=== PATIENT | male | born 1930 | race Caucasian/White ===

== ENCOUNTER 2017-02-20 16:07 | Inpatient (IN) | payer BC, MEDICARE ==
[~2017-02-20] VITALS: Ht 185.4 cm; Wt 116.1 kg
[~2017-02-20 16:07] MED LIST: ASPI-1158 PO; ATOR10TA PO; CARV3.1242 PO; FURO40TA5 PO; LOSA25TA12 PO; POTA10TA15 PO; RABE20TA27 PO
[2017-02-20] MEDS ORDERED: SODIUM CHLORIDE 0.9% 500 ML IV ONE (18:00)
[2017-02-20 18:27] LABS: CLARITY URINE CLEAR (CLEAR); COLOR URINE YELLOW (YELLOW); GLUCOSE URINE NEGATIVE (NEGATIVE); KETONES URINE NEGATIVE (NEGATIVE); LEUKOCYTE ESTERASE URINE 1+ (NEGATIVE); NITRITE URINE NEGATIVE (NEGATIVE); OCCULT BLOOD URINE TRACE (NEGATIVE); PROTEIN URINE NEGATIVE (NEGATIVE); UROBILINOGEN URINE 0.2 E.U./dL (0.2-1.0)
[2017-02-20 18:48] LABS: CHLORIDE 118 mEq/L (98-107); HEMOGLOBIN. 16.8 g/dL (14.0-18.0); MEAN CORPUSCULAR HEMOGLOBIN 32.8 pg (28.0-32.0); MEAN CORPUSCULAR VOLUME 97.5 fL (80.0-94.0); MEAN PLATELET VOLUME 9.7 fl (7.4-10.4); PLATELET 275 x1000/uL (130-400); RED BLOOD CELL COUNT 5.13 mill/uL (4.7-6.1); RED CELL DISTRIBUTION WIDTH 13.7 % (11.6-14.6)
[2017-02-20 18:49] LABS: INR 1.3; PROTHROMBIN TIME 13.5 sec (9.4-11.6)
[2017-02-20 18:52] LABS: CARBON DIOXIDE 29 mEq/L (21-32)
[2017-02-20 19:23] LABS: HEPATITIS B SURFACE ANTIGEN NEGATIVE
[2017-02-20 19:51] LABS: HEPATITIS B CORE AB IGM NEGATIVE
[2017-02-20 19:52] LABS: HEPATITIS A AB IGM NEGATIVE (NEGATIVE)
[2017-02-20 20:31] LABS: ATYPICAL LYMPHOCYTES 1
[2017-02-20 20:32] LABS: PLATELET ESTIMATE NORMAL
[2017-02-20 20:51] LABS: *AMPHETAMINES SCREEN URINE NEGATIVE (NEGATIVE); *BARBITURATES SCREEN URINE NEGATIVE (NEGATIVE); *BENZODIAZEPINES SCREEN URINE NEGATIVE (NEGATIVE); *COCAINE SCREEN URINE NEGATIVE (NEGATIVE); CANNABINOID URINE SCREEN NEGATIVE (NEGATIVE); METHADONE URINE SCREEN NEGATIVE (NEGATIVE); OPIATES URINE SCREEN NEGATIVE (NEGATIVE); PHENCYCLIDINE URINE SCREEN NEGATIVE (NEGATIVE)
[2017-02-20] MEDS ORDERED: SODIUM CHLORIDE 0.9% 1000ML BAG (SEPSIS BOLUS) IV ONE (23:30)
[2017-02-21] VITALS (10 sets, daily range): BP systolic 85–122; BP diastolic 45–75
[2017-02-21] MEDS ORDERED: LOSARTAN POTASSIUM 25 MG TABLET PO ONE
[2017-02-21] MEDS ORDERED: CARVEDILOL 6.25 MG TABLET PO ONE
[2017-02-21] MEDS ORDERED: MAGNESIUM/ALUMINUM HYDROXIDE/SIMETHICONE 30ML UDC PO PRN (00:15)
[2017-02-21] MEDS ORDERED: NA PHOS,M-B/NA PHOS,DI-BA ENEMA 118ML PR PRN (00:15)
[2017-02-21] MEDS ORDERED: NITROGLYCERIN 0.4MG TABLET SL SL PRN (00:15)
[2017-02-21] MEDS ORDERED: ENOXAPARIN 40MG/0.4ML SYR SUBCUT SCH (00:15)
[2017-02-21] MEDS ORDERED: TRAMADOL 50MG TABLET PO PRN (00:15)
[2017-02-21] MEDS ORDERED: ONDANSETRON HCL 4MG/2ML VIAL IV PRN (00:15)
[2017-02-21] MEDS ORDERED: CLONIDINE 0.1MG TABLET PO PRN (00:15)
[2017-02-21] MEDS ORDERED: PIPERACILLIN/TAZ 3.375G PREMIX 50 ML IV SCH (02:00)
[2017-02-21] MEDS: DEXT 5%/0.45% NACL 1000ML 1,000 ML IV SCH ×3 (02:53→23:56)
[2017-02-21] MEDS: HYDRALAZINE HCL 50MG TABLET PO SCH ×3 (05:55→22:55)
[2017-02-21] MEDS ORDERED: DILTIAZEM HCL 60MG TABLET PO SCH (06:00)
[2017-02-21 06:46] LABS: CREATINE KINASE MB FRACTION 2.1 ng/mL (0.5-3.6); TROPONIN I 0.08 ng/mL (0.00-0.04)
[2017-02-21 07:29] LABS: FOLIC ACID (FOLATE) SERUM > 20.00 ng/mL (>5.38); VITAMIN B12 SERUM > 2000.0 pg/mL (211-911)
[2017-02-21] MEDS: LISINOPRIL 20MG TABLET PO SCH ×2 (08:26→20:24)
[2017-02-21] MEDS: FAMOTIDINE 20MG/2ML VIAL IV SCH ×2 (08:27→20:24)
[2017-02-21] MEDS: ENOXAPARIN 30MG/0.3ML SYR SUBCUT SCH ×2 (08:27→20:24)
[2017-02-21] MEDS: MORPHINE SULFATE 4 MG/ML CPJ (NOT FOR IM USE) IV PRN ×2 (08:27→13:02)
[2017-02-21] MEDS ORDERED: DILTIAZEM HCL 125 MG in DEXT 5% WATER 100 ML IV SCH ×2 (12:15→13:00)
[2017-02-21] MEDS: PIPERACILLIN/TAZ 3.375G PREMIX 50 ML IV SCH ×2 (12:29→20:24)
[2017-02-21] MEDS: LORAZEPAM 2MG/ML CPJ IV PRN ×2 (13:02→19:09)
[2017-02-21] MEDS ORDERED: DILTIAZEM HCL 5MG/ML 5ML VIAL IV PRN (15:00)
[2017-02-21 15:50] LABS: CREATINE KINASE MB FRACTION 2.1 ng/mL (0.5-3.6); TROPONIN I 0.08 ng/mL (0.00-0.04)
[2017-02-22] VITALS (12 sets, daily range): BP systolic 95–157; BP diastolic 39–126
[2017-02-22] MEDS: LORAZEPAM 2MG/ML CPJ IV PRN ×3 (01:34→20:31)
[2017-02-22] MEDS: PIPERACILLIN/TAZ 3.375G PREMIX 50 ML IV SCH ×3 (03:01→19:44)
[2017-02-22] MEDS: HYDRALAZINE HCL 50MG TABLET PO SCH (06:00)
[2017-02-22 06:11] LABS: HEMATOCRIT. 45.4 % (42.0-52.0); HEMOGLOBIN. 15.4 g/dL (14.0-18.0); MEAN CORPUSCULAR HEMOGLOBIN 33.4 pg (28.0-32.0); MEAN CORPUSCULAR VOLUME 98.3 fL (80.0-94.0); MEAN PLATELET VOLUME 10.2 fl (7.4-10.4); PLATELET 231 x1000/uL (130-400); RED BLOOD CELL COUNT 4.62 mill/uL (4.7-6.1); RED CELL DISTRIBUTION WIDTH 13.8 % (11.6-14.6)
[2017-02-22 07:16] LABS: CARBON DIOXIDE 27 mEq/L (21-32); CHLORIDE 116 mEq/L (98-107); CREATINE KINASE 80 IU/L (39-308); CREATINE KINASE MB FRACTION 2.8 ng/mL (0.5-3.6)
[2017-02-22] MEDS: ENOXAPARIN 30MG/0.3ML SYR SUBCUT SCH ×2 (08:36→21:50)
[2017-02-22] MEDS: FAMOTIDINE 20MG/2ML VIAL IV SCH ×2 (08:36→20:23)
[2017-02-22] MEDS: LISINOPRIL 20MG TABLET PO SCH (08:38)
[2017-02-22 09:09] LABS: PLATELET ESTIMATE NORMAL
[2017-02-22] MEDS ORDERED: POTASSIUM CHLORIDE 20MEQ TABLET SR PO NR (11:30)
[2017-02-22] MEDS: ASPIRIN 81MG EC TABLET PO SCH (12:28)
[2017-02-22] MEDS: METOPROLOL TARTRATE 25MG TABLET PO SCH ×2 (12:29→20:23)
[2017-02-22 12:49] LABS: AMMONIA 26 uMol/L (<32)
[2017-02-22] MEDS: HYDRALAZINE HCL 25MG TABLET PO SCH ×2 (15:39→21:50)
[2017-02-22] MEDS: LISINOPRIL 5MG TABLET PO SCH (20:24)
[2017-02-22] MEDS: DIPHENHYDRAMINE 50MG/ML VIAL IV PRN (20:31)
[2017-02-22] MEDS: DEXT 5%/0.45% NACL 1000ML 1,000 ML IV SCH ×2 (20:38→20:40)
[2017-02-23] VITALS (23 sets, daily range): BP systolic 69–147; BP diastolic 40–103
[2017-02-23] MEDS: PIPERACILLIN/TAZ 3.375G PREMIX 50 ML IV SCH ×3 (03:59→19:51)
[2017-02-23] MEDS: HYDRALAZINE HCL 25MG TABLET PO SCH ×3 (05:37→21:14)
[2017-02-23] MEDS: DEXT 5%/0.45% NACL 1000ML 1,000 ML IV SCH ×3 (05:43→23:28)
[2017-02-23 07:40] LABS: BASOPHILS % 0.5 % (0.0-2.0); EOSINOPHILS % 5.2 % (0.0-5.0); HEMOGLOBIN. 15.2 g/dL (14.0-18.0); LYMPHOCYTES % 7.6 % (20.0-50.0); MEAN CORPUSCULAR HEMOGLOBIN 32.6 pg (28.0-32.0); MEAN CORPUSCULAR VOLUME 100.5 fL (80.0-94.0); NEUTROPHILS % 78.7 % (40.0-76.0); RED BLOOD CELL COUNT 4.67 mill/uL (4.7-6.1)
[2017-02-23] MEDS: FAMOTIDINE 20MG/2ML VIAL IV SCH ×2 (09:18→20:09)
[2017-02-23] MEDS: LISINOPRIL 5MG TABLET PO SCH ×2 (09:18→20:10)
[2017-02-23] MEDS: ASPIRIN 81MG EC TABLET PO SCH (09:19)
[2017-02-23] MEDS: ENOXAPARIN 30MG/0.3ML SYR SUBCUT SCH ×2 (09:19→20:09)
[2017-02-23] MEDS: METOPROLOL TARTRATE 25MG TABLET PO SCH ×2 (09:19→20:10)
[2017-02-23 12:11] LABS: PLATELET 150 x1000/uL (130-400)
[2017-02-23 14:11] LABS: CARBON DIOXIDE 26 mEq/L (21-32); CHLORIDE 113 mEq/L (98-107)
[2017-02-23 14:12] LABS: TROPONIN I 0.06 ng/mL (0.00-0.04)
[2017-02-23] MEDS: MAGNESIUM OXIDE 400MG TABLET NG SCH (14:40)
[2017-02-23] MEDS ORDERED: POTASSIUM CHLORIDE 20MEQ/PACKET PO NR (15:00)
[2017-02-23] MEDS: LORAZEPAM 2MG/ML CPJ IV PRN (19:53)
[2017-02-24] VITALS (12 sets, daily range): BP systolic 104–170; BP diastolic 55–94
[2017-02-24] MEDS: ZOLPIDEM TARTRATE 5MG TABLET PO PRN ×2 (00:57→21:03)
[2017-02-24] MEDS: DIPHENHYDRAMINE 50MG/ML VIAL IV PRN ×2 (00:57→20:44)
[2017-02-24] MEDS: PIPERACILLIN/TAZ 3.375G PREMIX 50 ML IV SCH ×3 (03:49→20:23)
[2017-02-24] MEDS: HYDRALAZINE HCL 25MG TABLET PO SCH ×3 (06:16→21:25)
[2017-02-24] MEDS: MAGNESIUM OXIDE 400MG TABLET NG SCH (09:27)
[2017-02-24] MEDS: FAMOTIDINE 20MG/2ML VIAL IV SCH ×2 (09:27→20:24)
[2017-02-24] MEDS: ASPIRIN 81MG EC TABLET PO SCH (09:27)
[2017-02-24] MEDS: LISINOPRIL 5MG TABLET PO SCH ×2 (09:28→21:26)
[2017-02-24] MEDS: METOPROLOL TARTRATE 25MG TABLET PO SCH ×2 (09:28→20:25)
[2017-02-24] MEDS: ENOXAPARIN 30MG/0.3ML SYR SUBCUT SCH ×2 (09:28→20:23)
[2017-02-24 12:00] LABS: CARBON DIOXIDE 26 mEq/L (21-32); CHLORIDE 112 mEq/L (98-107)
[2017-02-24] MEDS: DEXT 5%/0.45% NACL 1000ML 1,000 ML IV SCH (18:17)
[2017-02-24] MEDS: LORAZEPAM 2MG/ML CPJ IV PRN (20:24)
[2017-02-24] MEDS: MORPHINE SULFATE 4 MG/ML CPJ (NOT FOR IM USE) IV PRN (21:27)
[2017-02-25] VITALS (12 sets, daily range): BP systolic 101–144; BP diastolic 45–99
[2017-02-25] MEDS: PIPERACILLIN/TAZ 3.375G PREMIX 50 ML IV SCH ×3 (03:01→20:56)
[2017-02-25] MEDS: DEXT 5%/0.45% NACL 1000ML 1,000 ML IV SCH ×2 (03:21→06:00)
[2017-02-25] MEDS: HYDRALAZINE HCL 25MG TABLET PO SCH ×3 (05:14→21:00)
[2017-02-25] MEDS: MAGNESIUM OXIDE 400MG TABLET NG SCH (08:42)
[2017-02-25] MEDS: ASPIRIN 81MG EC TABLET PO SCH (08:42)
[2017-02-25] MEDS: LISINOPRIL 5MG TABLET PO SCH ×2 (08:43→21:00)
[2017-02-25] MEDS: METOPROLOL TARTRATE 25MG TABLET PO SCH ×2 (08:43→21:00)
[2017-02-25] MEDS: ENOXAPARIN 30MG/0.3ML SYR SUBCUT SCH ×2 (08:43→21:01)
[2017-02-25] MEDS: FAMOTIDINE 20MG/2ML VIAL IV SCH ×2 (11:45→21:00)
[2017-02-25 12:45] LABS: BG BASE EXCESS 2.5 mmol/L (-2.0-2.0); BG CARBOXYHEMOGLOBIN 0.3 % (0.5-1.5); BG DEOXYHEMOGLOBIN 2.3 % (0.0-5.0); BG FRACTION INSPIRED OXYGEN 28; BG HCO3 ACT 26.6 mmol/L (22.0-26.0); BG OXYGEN SATURATION 97.7 % (92.0-98.5); BG OXYHEMOGLOBIN 97.4 % (94.0-97.0); BG PCO2 39.4 mmHg (35.0-45.0); BG PH 7.447 (7.350-7.450); BG PO2 96.5 mmHg (75.0-100.0); BG SAMPLE SITE RIGHT RADIAL; BG TOTAL HEMOGLOBIN 14.7 g/dL (12.0-18.0); BG VENT MODE NASAL CANNULA
[2017-02-25] MEDS ORDERED: MAGNESIUM 2 G PREMIX 50 ML IV SCH (15:00)
[2017-02-26 01:51] VITALS: BP 119/76
[2017-02-26] MEDS: DEXT 5%/0.45% NACL 1000ML 1,000 ML IV SCH ×3 (02:00→10:31)
[2017-02-26] MEDS: IPRATROPIUM/ALBUTEROL 0.5-3(2.5)MG/3ML NEB HHN SCH ×4 (02:19→20:35)
[2017-02-26 03:51] VITALS: BP 120/72
[2017-02-26] MEDS: PIPERACILLIN/TAZ 3.375G PREMIX 50 ML IV SCH ×3 (04:58→20:43)
[2017-02-26 05:51] VITALS: BP 129/71
[2017-02-26] MEDS: HYDRALAZINE HCL 25MG TABLET PO SCH ×3 (07:10→22:45)
[2017-02-26 07:51] LABS: BASOPHILS % 0.5 % (0.0-2.0); EOSINOPHILS % 3.7 % (0.0-5.0); HEMATOCRIT. 40.9 % (42.0-52.0); HEMOGLOBIN. 13.7 g/dL (14.0-18.0); MEAN CORPUSCULAR HEMOGLOBIN 32.3 pg (28.0-32.0); MEAN CORPUSCULAR VOLUME 96.5 fL (80.0-94.0); MEAN PLATELET VOLUME 10.7 fl (7.4-10.4); MONOCYTES % 10.5 % (2.0-8.0); NEUTROPHILS % 74.3 % (40.0-76.0); PLATELET 233 x1000/uL (130-400); RED BLOOD CELL COUNT 4.24 mill/uL (4.7-6.1); RED CELL DISTRIBUTION WIDTH 13.4 % (11.6-14.6)
[2017-02-26 07:52] LABS: CARBON DIOXIDE 27 mEq/L (21-32); CHLORIDE 106 mEq/L (98-107); TROPONIN I 0.06 ng/mL (0.00-0.04)
[2017-02-26] MEDS: DOCUSATE SODIUM 100MG CAPSULE PO PRN (10:26)
[2017-02-26] MEDS: ASPIRIN 81MG EC TABLET PO SCH (10:26)
[2017-02-26] MEDS: LISINOPRIL 5MG TABLET PO SCH ×2 (10:27→20:43)
[2017-02-26] MEDS: MAGNESIUM OXIDE 400MG TABLET NG SCH (10:28)
[2017-02-26] MEDS: FAMOTIDINE 20MG/2ML VIAL IV SCH ×2 (10:28→22:47)
[2017-02-26] MEDS: ENOXAPARIN 30MG/0.3ML SYR SUBCUT SCH ×2 (10:29→20:44)
[2017-02-26] MEDS: METOPROLOL TARTRATE 25MG TABLET PO SCH ×2 (10:33→20:43)
[2017-02-26] MEDS: ACETAMINOPHEN 325MG TABLET PO PRN (14:21)
[2017-02-26 20:00] VITALS: BP 124/63
[2017-02-26 22:00] VITALS: BP 128/72
[2017-02-26] MEDS: DIPHENHYDRAMINE 50MG/ML VIAL IV PRN (22:45)
[2017-02-27] VITALS (12 sets, daily range): BP systolic 112–156; BP diastolic 61–93
[2017-02-27] MEDS: DEXT 5%/0.45% NACL 1000ML 1,000 ML IV SCH ×4 (00:02→23:23)
[2017-02-27] MEDS: GUAIFENESIN 200MG/10ML SUGAR FREE UDC PO PRN (00:57)
[2017-02-27] MEDS: IPRATROPIUM/ALBUTEROL 0.5-3(2.5)MG/3ML NEB HHN SCH ×4 (01:37→19:30)
[2017-02-27] MEDS: ACETAMINOPHEN 325MG TABLET PO PRN ×2 (02:14→22:19)
[2017-02-27] MEDS: PIPERACILLIN/TAZ 3.375G PREMIX 50 ML IV SCH ×3 (04:41→20:06)
[2017-02-27] MEDS: HYDRALAZINE HCL 25MG TABLET PO SCH ×3 (05:25→22:19)
[2017-02-27] MEDS: ASPIRIN 81MG EC TABLET PO SCH (08:42)
[2017-02-27] MEDS: FAMOTIDINE 20MG/2ML VIAL IV SCH ×2 (08:42→21:09)
[2017-02-27] MEDS: LISINOPRIL 5MG TABLET PO SCH ×2 (08:44→21:09)
[2017-02-27] MEDS: MAGNESIUM OXIDE 400MG TABLET NG SCH (08:45)
[2017-02-27] MEDS: METOPROLOL TARTRATE 25MG TABLET PO SCH ×2 (08:45→21:09)
[2017-02-27] MEDS: ENOXAPARIN 30MG/0.3ML SYR SUBCUT SCH ×2 (08:45→21:09)
[2017-02-27] MEDS ORDERED: TRAMADOL 50MG TABLET PO PRN (09:45)
[2017-02-27] MEDS ORDERED: POTASSIUM CHLORIDE 20MEQ/PACKET PO SCH (09:45)
[2017-02-27] MEDS ORDERED: POTASSIUM CHLORIDE 20MEQ/PACKET PO ONE (12:45)
[2017-02-28] VITALS (10 sets, daily range): BP systolic 109–148; BP diastolic 16–94
[2017-02-28] MEDS: IPRATROPIUM/ALBUTEROL 0.5-3(2.5)MG/3ML NEB HHN SCH ×3 (01:22→20:13)
[2017-02-28] MEDS: PIPERACILLIN/TAZ 3.375G PREMIX 50 ML IV SCH ×2 (03:18→12:00)
[2017-02-28 05:51] LABS: PARTIAL THROMBOPLASTIN TIME 31.7 sec (23.4-31.0); PROTHROMBIN TIME 10.8 sec (9.4-11.6)
[2017-02-28] MEDS: HYDRALAZINE HCL 25MG TABLET PO SCH ×3 (06:10→21:01)
[2017-02-28] MEDS: MAGNESIUM OXIDE 400MG TABLET NG SCH (08:23)
[2017-02-28] MEDS: ENOXAPARIN 30MG/0.3ML SYR SUBCUT SCH (08:23)
[2017-02-28] MEDS: ASPIRIN 81MG EC TABLET PO SCH (08:23)
[2017-02-28] MEDS: METOPROLOL TARTRATE 25MG TABLET PO SCH ×2 (09:00→21:02)
[2017-02-28] MEDS: LISINOPRIL 5MG TABLET PO SCH ×2 (09:00→21:02)
[2017-02-28] MEDS: FAMOTIDINE 20MG/2ML VIAL IV SCH (09:43)
[2017-02-28] MEDS: DEXT 5%/0.45% NACL 1000ML 1,000 ML IV SCH (09:55)
[2017-02-28] MEDS: IPRATROPIUM/ALBUTEROL 0.5-3(2.5)MG/3ML NEB INH PRN ×2 (11:28→15:51)
[2017-02-28] MEDS ORDERED: MIDAZOLAM HCL 5 MG/5 ML VIAL ONE (13:44)
[2017-02-28] MEDS ORDERED: FENTANYL CITRATE/PF 50MCG/ML 2ML VIAL ONE (13:44)
[2017-02-28] MEDS ORDERED: SIMETHICONE 40 MG/0.6 ML 30ML ONE (13:56)
[2017-02-28] MEDS ORDERED: SODIUM CHLORIDE 0.9% 10ML VIAL ONE (13:56)
[2017-02-28] MEDS ORDERED: MIDAZOLAM HCL 5 MG/5 ML VIAL IV ONE (14:30)
[2017-02-28] MEDS: OMEPRAZOLE 20MG CAPSULE EXTENDED RELEASE PO SCH (21:02)
[2017-03-01] VITALS (12 sets, daily range): BP systolic 98–146; BP diastolic 36–92
[2017-03-01] MEDS: IPRATROPIUM/ALBUTEROL 0.5-3(2.5)MG/3ML NEB HHN SCH ×4 (01:17→20:53)
[2017-03-01] MEDS: DEXT 5%/0.45% NACL 1000ML 1,000 ML IV SCH ×2 (01:32→09:13)
[2017-03-01] MEDS: HYDRALAZINE HCL 25MG TABLET PO SCH ×3 (05:56→21:41)
[2017-03-01] MEDS: OMEPRAZOLE 20MG CAPSULE EXTENDED RELEASE PO SCH ×2 (06:37→21:56)
[2017-03-01] MEDS: ASPIRIN 81MG TABLET PO SCH (08:28)
[2017-03-01] MEDS: MAGNESIUM OXIDE 400MG TABLET NG SCH (08:28)
[2017-03-01] MEDS: GUAIFENESIN 200MG/10ML SUGAR FREE UDC PO PRN (08:28)
[2017-03-01] MEDS: METOPROLOL TARTRATE 25MG TABLET PO SCH ×2 (08:28→21:00)
[2017-03-01] MEDS: MORPHINE SULFATE 4 MG/ML CPJ (NOT FOR IM USE) IV PRN ×2 (08:29→13:10)
[2017-03-01] MEDS: LISINOPRIL 5MG TABLET PO SCH ×2 (08:44→21:00)
[2017-03-01 10:47] LABS: HEMATOCRIT. 41.6 % (42.0-52.0); MEAN CORPUSCULAR HEMOGLOBIN 32.3 pg (28.0-32.0); MEAN CORPUSCULAR VOLUME 96.1 fL (80.0-94.0); MEAN PLATELET VOLUME 9.8 fl (7.4-10.4); PLATELET 269 x1000/uL (130-400); RED BLOOD CELL COUNT 4.33 mill/uL (4.7-6.1); RED CELL DISTRIBUTION WIDTH 13.9 % (11.6-14.6)
[2017-03-01] MEDS: METOCLOPRAMIDE HCL 10MG/2ML VIAL IV SCH ×3 (12:10→23:58)
[2017-03-01] MEDS: NYSTATIN POWDER 15GM TOP SCH ×2 (13:09→17:38)
[2017-03-01] MEDS: ACETYLCYSTEINE 100MG/ML 10% VIAL 4ML INH SCH ×2 (13:26→20:53)
[2017-03-01 16:42] LABS: PLATELET ESTIMATE NORMAL
[2017-03-01] MEDS: ENOXAPARIN 30MG/0.3ML SYR SUBCUT SCH (21:56)
[2017-03-02] VITALS (13 sets, daily range): BP systolic 93–137; BP diastolic 49–79
[2017-03-02] MEDS: METOCLOPRAMIDE HCL 10MG/2ML VIAL IV SCH ×3 (05:10→17:33)
[2017-03-02] MEDS: HYDRALAZINE HCL 25MG TABLET PO SCH ×3 (05:24→21:25)
[2017-03-02] MEDS: DEXT 5%/0.45% NACL 1000ML 1,000 ML IV SCH (05:38)
[2017-03-02] MEDS: OMEPRAZOLE 20MG CAPSULE EXTENDED RELEASE PO SCH ×2 (07:30→20:32)
[2017-03-02] MEDS: LISINOPRIL 5MG TABLET PO SCH ×2 (08:44→21:00)
[2017-03-02] MEDS: METOPROLOL TARTRATE 25MG TABLET PO SCH ×2 (08:46→20:32)
[2017-03-02] MEDS: MAGNESIUM OXIDE 400MG TABLET NG SCH (08:46)
[2017-03-02] MEDS: ASPIRIN 81MG TABLET PO SCH (08:46)
[2017-03-02] MEDS: ENOXAPARIN 30MG/0.3ML SYR SUBCUT SCH ×2 (08:46→20:32)
[2017-03-02] MEDS: NYSTATIN POWDER 15GM TOP SCH ×3 (08:49→17:33)
[2017-03-02] MEDS: ACETYLCYSTEINE 100MG/ML 10% VIAL 4ML INH SCH (10:29)
[2017-03-02] MEDS: IPRATROPIUM/ALBUTEROL 0.5-3(2.5)MG/3ML NEB HHN SCH ×3 (10:32→20:46)
[2017-03-02] MEDS: ACETAMINOPHEN 325MG TABLET PO PRN (16:43)
[2017-03-03] VITALS (12 sets, daily range): BP systolic 108–142; BP diastolic 48–87
[2017-03-03] MEDS: METOCLOPRAMIDE HCL 10MG/2ML VIAL IV SCH ×5 (00:11→23:08)
[2017-03-03] MEDS: ACETYLCYSTEINE 100MG/ML 10% VIAL 4ML INH SCH ×3 (01:11→20:59)
[2017-03-03] MEDS: IPRATROPIUM/ALBUTEROL 0.5-3(2.5)MG/3ML NEB HHN SCH ×4 (01:12→20:59)
[2017-03-03] MEDS: HYDRALAZINE HCL 25MG TABLET PO SCH ×3 (06:43→23:08)
[2017-03-03] MEDS: OMEPRAZOLE 20MG CAPSULE EXTENDED RELEASE PO SCH ×2 (06:44→21:48)
[2017-03-03] MEDS: ENOXAPARIN 30MG/0.3ML SYR SUBCUT SCH ×2 (08:12→21:49)
[2017-03-03] MEDS: LISINOPRIL 5MG TABLET PO SCH ×2 (08:13→21:48)
[2017-03-03] MEDS: MAGNESIUM OXIDE 400MG TABLET NG SCH (08:13)
[2017-03-03] MEDS: METOPROLOL TARTRATE 25MG TABLET PO SCH ×2 (08:13→21:49)
[2017-03-03] MEDS: ACETAMINOPHEN 325MG TABLET PO PRN ×2 (08:13→17:41)
[2017-03-03] MEDS: ASPIRIN 81MG TABLET PO SCH (08:13)
[2017-03-03] MEDS: NYSTATIN POWDER 15GM TOP SCH ×3 (08:14→16:37)
[2017-03-03 12:46] LABS: CARBON DIOXIDE 25 mEq/L (21-32); CHLORIDE 105 mEq/L (98-107)
[2017-03-03 15:13] LABS: GLUCOSE URINE NEGATIVE (NEGATIVE); KETONES URINE 2+ (NEGATIVE); LEUKOCYTE ESTERASE URINE 3+ (NEGATIVE); NITRITE URINE POSITIVE (NEGATIVE); OCCULT BLOOD URINE 3+ (NEGATIVE); PROTEIN URINE 2+ (NEGATIVE); SPECIFIC GRAVITY URINE 1.019 (1.005-1.030)
[2017-03-03 15:31] LABS: CLARITY URINE CLOUDY (CLEAR); COLOR URINE BLOODY (YELLOW)
[2017-03-03 15:55] LABS: HEMATOCRIT. 35.3 % (42.0-52.0); HEMOGLOBIN. 11.9 g/dL (14.0-18.0); MEAN CORPUSCULAR HEMOGLOBIN 32.6 pg (28.0-32.0); MEAN CORPUSCULAR VOLUME 96.4 fL (80.0-94.0); PLATELET 283 x1000/uL (130-400); RED BLOOD CELL COUNT 3.66 mill/uL (4.7-6.1); RED CELL DISTRIBUTION WIDTH 14.1 % (11.6-14.6)
[2017-03-03] MEDS: CEFEPIME 1,000 MG in DEXTROSE 5% WATER 50 ML IV SCH (15:56)
[2017-03-03] MEDS ORDERED: VANCOMYCIN 2,000 MG in DEXT 5% WATER 500 ML IV NR (16:00)
[2017-03-03 16:17] LABS: CHLORIDE 105 mEq/L (98-107)
[2017-03-03 16:23] LABS: CARBON DIOXIDE 23 mEq/L (21-32)
[2017-03-03 16:44] LABS: PLATELET ESTIMATE NORMAL
[2017-03-04] VITALS (12 sets, daily range): BP systolic 97–148; BP diastolic 55–94
[2017-03-04] MEDS: IPRATROPIUM/ALBUTEROL 0.5-3(2.5)MG/3ML NEB HHN SCH ×4 (01:16→20:01)
[2017-03-04] MEDS: CEFEPIME 1,000 MG in DEXTROSE 5% WATER 50 ML IV SCH ×2 (02:04→15:31)
[2017-03-04 06:04] LABS: HEMATOCRIT. 34.7 % (42.0-52.0); HEMOGLOBIN. 11.7 g/dL (14.0-18.0); MEAN CORPUSCULAR HEMOGLOBIN 32.5 pg (28.0-32.0); MEAN CORPUSCULAR VOLUME 96.1 fL (80.0-94.0); MEAN PLATELET VOLUME 9.7 fl (7.4-10.4); PLATELET 294 x1000/uL (130-400); RED BLOOD CELL COUNT 3.61 mill/uL (4.7-6.1)
[2017-03-04] MEDS: OMEPRAZOLE 20MG CAPSULE EXTENDED RELEASE PO SCH ×2 (06:34→21:24)
[2017-03-04] MEDS: HYDRALAZINE HCL 25MG TABLET PO SCH ×3 (06:34→22:42)
[2017-03-04] MEDS: METOCLOPRAMIDE HCL 10MG/2ML VIAL IV SCH ×4 (06:34→23:59)
[2017-03-04] MEDS: ACETYLCYSTEINE 100MG/ML 10% VIAL 4ML INH SCH ×2 (08:49→12:34)
[2017-03-04] MEDS: ENOXAPARIN 30MG/0.3ML SYR SUBCUT SCH (09:04)
[2017-03-04] MEDS: MAGNESIUM OXIDE 400MG TABLET NG SCH (09:06)
[2017-03-04] MEDS: LISINOPRIL 5MG TABLET PO SCH ×2 (09:06→21:28)
[2017-03-04] MEDS: METOPROLOL TARTRATE 25MG TABLET PO SCH ×2 (09:06→21:25)
[2017-03-04] MEDS: ASPIRIN 81MG TABLET PO SCH (09:07)
[2017-03-04] MEDS: NYSTATIN POWDER 15GM TOP SCH ×3 (09:07→17:17)
[2017-03-04] MEDS: ACETAMINOPHEN 325MG TABLET PO PRN ×2 (09:33→17:16)
[2017-03-04] MEDS: VANCOMYCIN 1250MG in DEXTROSE 5% WATER 250ML IV SCH (09:33)
[2017-03-04] MEDS: MORPHINE SULFATE 4 MG/ML CPJ (NOT FOR IM USE) IV PRN (11:07)
[2017-03-04] MEDS ORDERED: POTASSIUM CHLORIDE INJ 40 MEQ in DEXT 5% WATER 250 ML IV ONE (11:45)
[2017-03-04] MEDS ORDERED: POTASSIUM CHLORIDE 20MEQ TABLET SR PO ONE (11:45)
[2017-03-04] MEDS: FLUCONAZOLE 200MG TABLET PO SCH (15:31)
[2017-03-04 16:14] LABS: PLATELET ESTIMATE NORMAL
[2017-03-04] MEDS: ENOXAPARIN 40MG/0.4ML SYR SUBCUT SCH (21:26)
[2017-03-05] VITALS (19 sets, daily range): BP systolic 98–149; BP diastolic 40–89
[2017-03-05] MEDS: IPRATROPIUM/ALBUTEROL 0.5-3(2.5)MG/3ML NEB HHN SCH ×5 (00:21→21:09)
[2017-03-05] MEDS: ACETYLCYSTEINE 100MG/ML 10% VIAL 4ML INH SCH ×3 (00:21→16:00)
[2017-03-05] MEDS: ACETAMINOPHEN 325MG TABLET PO PRN (02:02)
[2017-03-05] MEDS: CEFEPIME 1,000 MG in DEXTROSE 5% WATER 50 ML IV SCH ×2 (02:10→14:46)
[2017-03-05] MEDS: VANCOMYCIN 1250MG in DEXTROSE 5% WATER 250ML IV SCH ×2 (03:36→22:18)
[2017-03-05] MEDS: METOCLOPRAMIDE HCL 10MG/2ML VIAL IV SCH ×4 (06:39→23:13)
[2017-03-05] MEDS: OMEPRAZOLE 20MG CAPSULE EXTENDED RELEASE PO SCH ×2 (06:39→21:10)
[2017-03-05] MEDS: HYDRALAZINE HCL 25MG TABLET PO SCH ×3 (06:39→22:18)
[2017-03-05] MEDS: MAGNESIUM OXIDE 400MG TABLET NG SCH (09:26)
[2017-03-05] MEDS: ENOXAPARIN 40MG/0.4ML SYR SUBCUT SCH ×2 (09:26→21:10)
[2017-03-05] MEDS: METOPROLOL TARTRATE 25MG TABLET PO SCH ×2 (09:26→21:10)
[2017-03-05] MEDS: FLUCONAZOLE 200MG TABLET PO SCH (09:27)
[2017-03-05] MEDS: ASPIRIN 81MG TABLET PO SCH (09:27)
[2017-03-05] MEDS: LISINOPRIL 5MG TABLET PO SCH ×2 (09:27→21:10)
[2017-03-05] MEDS: NYSTATIN POWDER 15GM TOP SCH ×3 (09:28→17:37)
[2017-03-05] MEDS ORDERED: IPRATROPIUM/ALBUTEROL 0.5-3(2.5)MG/3ML NEB HHN PRN (11:45)
[2017-03-06] VITALS (12 sets, daily range): BP systolic 105–154; BP diastolic 63–97
[2017-03-06] MEDS: ACETAMINOPHEN 325MG TABLET PO PRN ×2 (00:28→20:25)
[2017-03-06] MEDS: ACETYLCYSTEINE 100MG/ML 10% VIAL 4ML INH SCH ×3 (02:28→16:15)
[2017-03-06] MEDS: IPRATROPIUM/ALBUTEROL 0.5-3(2.5)MG/3ML NEB HHN SCH ×5 (02:29→21:23)
[2017-03-06] MEDS: CEFEPIME 1,000 MG in DEXTROSE 5% WATER 50 ML IV SCH ×2 (02:59→14:17)
[2017-03-06] MEDS: METOCLOPRAMIDE HCL 10MG/2ML VIAL IV SCH ×4 (06:34→23:46)
[2017-03-06] MEDS: OMEPRAZOLE 20MG CAPSULE EXTENDED RELEASE PO SCH ×2 (06:34→20:26)
[2017-03-06] MEDS: HYDRALAZINE HCL 25MG TABLET PO SCH ×3 (06:34→22:12)
[2017-03-06 07:30] LABS: HEMATOCRIT. 32.4 % (42.0-52.0); HEMOGLOBIN. 11.1 g/dL (14.0-18.0); MEAN CORPUSCULAR HEMOGLOBIN 32.9 pg (28.0-32.0); MEAN CORPUSCULAR VOLUME 96.5 fL (80.0-94.0); MEAN PLATELET VOLUME 9.1 fl (7.4-10.4); PLATELET 367 x1000/uL (130-400); RED BLOOD CELL COUNT 3.36 mill/uL (4.7-6.1); RED CELL DISTRIBUTION WIDTH 14.2 % (11.6-14.6)
[2017-03-06] MEDS: ENOXAPARIN 40MG/0.4ML SYR SUBCUT SCH ×2 (09:02→20:26)
[2017-03-06] MEDS: METOPROLOL TARTRATE 25MG TABLET PO SCH ×2 (09:02→20:26)
[2017-03-06] MEDS: FLUCONAZOLE 200MG TABLET PO SCH (09:02)
[2017-03-06] MEDS: LISINOPRIL 5MG TABLET PO SCH ×2 (09:02→20:26)
[2017-03-06] MEDS: MAGNESIUM OXIDE 400MG TABLET NG SCH (09:02)
[2017-03-06] MEDS: ASPIRIN 81MG TABLET PO SCH (09:08)
[2017-03-06] MEDS: NYSTATIN POWDER 15GM TOP SCH ×4 (10:40→17:22)
[2017-03-06 17:28] LABS: PLATELET ESTIMATE NORMAL
[2017-03-06] MEDS: DIPHENHYDRAMINE 50MG/ML VIAL IV PRN ×2 (17:48→22:29)
[2017-03-07] VITALS (9 sets, daily range): BP systolic 108–143; BP diastolic 44–86
[2017-03-07] MEDS: IPRATROPIUM/ALBUTEROL 0.5-3(2.5)MG/3ML NEB HHN SCH ×6 (00:22→22:20)
[2017-03-07] MEDS: CEFEPIME 1,000 MG in DEXTROSE 5% WATER 50 ML IV SCH ×2 (02:57→16:43)
[2017-03-07] MEDS: METOCLOPRAMIDE HCL 10MG/2ML VIAL IV SCH ×3 (06:31→17:39)
[2017-03-07] MEDS: OMEPRAZOLE 20MG CAPSULE EXTENDED RELEASE PO SCH ×2 (06:31→21:00)
[2017-03-07] MEDS: HYDRALAZINE HCL 25MG TABLET PO SCH ×3 (06:31→21:35)
[2017-03-07 06:50] LABS: BASOPHILS % 0.5 % (0.0-2.0); EOSINOPHILS % 3.5 % (0.0-5.0); HEMATOCRIT. 34.8 % (42.0-52.0); HEMOGLOBIN. 11.6 g/dL (14.0-18.0); LYMPHOCYTES % 7.8 % (20.0-50.0); MEAN CORPUSCULAR HEMOGLOBIN 32.2 pg (28.0-32.0); MEAN CORPUSCULAR VOLUME 96.5 fL (80.0-94.0); MEAN PLATELET VOLUME 8.9 fl (7.4-10.4); MONOCYTES % 8.9 % (2.0-8.0); NEUTROPHILS % 79.3 % (40.0-76.0); PLATELET 455 x1000/uL (130-400); RED BLOOD CELL COUNT 3.61 mill/uL (4.7-6.1); RED CELL DISTRIBUTION WIDTH 14.2 % (11.6-14.6)
[2017-03-07] MEDS: VANCOMYCIN 1 G PREMIX 200 ML IV SCH (08:46)
[2017-03-07] MEDS: MAGNESIUM OXIDE 400MG TABLET NG SCH (08:46)
[2017-03-07] MEDS: FLUCONAZOLE 200MG TABLET PO SCH (08:46)
[2017-03-07] MEDS: LISINOPRIL 5MG TABLET PO SCH ×2 (08:46→21:00)
[2017-03-07] MEDS: ENOXAPARIN 40MG/0.4ML SYR SUBCUT SCH ×2 (08:46→20:59)
[2017-03-07] MEDS: METOPROLOL TARTRATE 25MG TABLET PO SCH ×2 (08:46→20:59)
[2017-03-07] MEDS: NYSTATIN POWDER 15GM TOP SCH ×3 (08:47→21:06)
[2017-03-07] MEDS: ASPIRIN 81MG TABLET PO SCH (08:53)
[2017-03-07] MEDS: ACETAMINOPHEN 325MG TABLET PO PRN (09:26)
[2017-03-07 16:25] LABS: CLARITY URINE TURBID (CLEAR); COLOR URINE ORANGE (YELLOW); GLUCOSE URINE NEGATIVE (NEGATIVE); KETONES URINE NEGATIVE (NEGATIVE); LEUKOCYTE ESTERASE URINE 3+ (NEGATIVE); NITRITE URINE NEGATIVE (NEGATIVE); OCCULT BLOOD URINE 3+ (NEGATIVE); PROTEIN URINE 2+ (NEGATIVE); UROBILINOGEN URINE 0.2 E.U./dL (0.2-1.0)
[2017-03-08] VITALS (12 sets, daily range): BP systolic 102–138; BP diastolic 23–83
[2017-03-08] MEDS: METOCLOPRAMIDE HCL 10MG/2ML VIAL IV SCH ×4 (00:19→17:13)
[2017-03-08] MEDS: DIPHENHYDRAMINE 50MG/ML VIAL IV PRN (00:20)
[2017-03-08] MEDS: GUAIFENESIN 200MG/10ML SUGAR FREE UDC PO PRN (00:20)
[2017-03-08] MEDS: IPRATROPIUM/ALBUTEROL 0.5-3(2.5)MG/3ML NEB HHN SCH ×6 (00:27→20:48)
[2017-03-08] MEDS: CEFEPIME 1,000 MG in DEXTROSE 5% WATER 50 ML IV SCH ×2 (03:48→14:58)
[2017-03-08 06:00] LABS: BASOPHILS % 0.3 % (0.0-2.0); EOSINOPHILS % 1.2 % (0.0-5.0); HEMATOCRIT. 32.2 % (42.0-52.0); LYMPHOCYTES % 7.5 % (20.0-50.0); MEAN CORPUSCULAR HEMOGLOBIN 32.6 pg (28.0-32.0); MEAN CORPUSCULAR VOLUME 95.6 fL (80.0-94.0); MEAN PLATELET VOLUME 8.7 fl (7.4-10.4); MONOCYTES % 8.3 % (2.0-8.0); NEUTROPHILS % 82.7 % (40.0-76.0); PLATELET 464 x1000/uL (130-400); RED BLOOD CELL COUNT 3.36 mill/uL (4.7-6.1); RED CELL DISTRIBUTION WIDTH 14.5 % (11.6-14.6)
[2017-03-08] MEDS: HYDRALAZINE HCL 25MG TABLET PO SCH ×3 (07:04→22:00)
[2017-03-08] MEDS: OMEPRAZOLE 20MG CAPSULE EXTENDED RELEASE PO SCH ×2 (08:03→21:08)
[2017-03-08] MEDS: LISINOPRIL 5MG TABLET PO SCH ×2 (09:00→21:00)
[2017-03-08] MEDS: MAGNESIUM OXIDE 400MG TABLET NG SCH (09:26)
[2017-03-08] MEDS: FLUCONAZOLE 200MG TABLET PO SCH (09:26)
[2017-03-08] MEDS: ENOXAPARIN 40MG/0.4ML SYR SUBCUT SCH ×2 (09:26→21:08)
[2017-03-08] MEDS: ASPIRIN 81MG TABLET PO SCH (09:26)
[2017-03-08] MEDS: METOPROLOL TARTRATE 25MG TABLET PO SCH ×2 (09:28→21:08)
[2017-03-08] MEDS: NYSTATIN POWDER 15GM TOP SCH ×3 (09:40→17:13)
[2017-03-08] MEDS: VANCOMYCIN 1 G PREMIX 200 ML IV SCH (10:16)
[2017-03-08] MEDS: ACETAMINOPHEN 325MG TABLET PO PRN (18:17)
[2017-03-09] VITALS (11 sets, daily range): BP systolic 101–142; BP diastolic 31–84
[2017-03-09] MEDS: METOCLOPRAMIDE HCL 10MG/2ML VIAL IV SCH ×5 (00:08→23:53)
[2017-03-09] MEDS: IPRATROPIUM/ALBUTEROL 0.5-3(2.5)MG/3ML NEB HHN SCH ×6 (00:33→21:27)
[2017-03-09] MEDS: DIPHENHYDRAMINE 50MG/ML VIAL IV PRN (01:47)
[2017-03-09] MEDS: ACETAMINOPHEN 325MG TABLET PO PRN (02:28)
[2017-03-09] MEDS: CEFEPIME 1,000 MG in DEXTROSE 5% WATER 50 ML IV SCH ×2 (02:40→14:44)
[2017-03-09] MEDS: HYDRALAZINE HCL 25MG TABLET PO SCH ×3 (06:00→21:18)
[2017-03-09] MEDS: OMEPRAZOLE 20MG CAPSULE EXTENDED RELEASE PO SCH ×2 (07:00→21:13)
[2017-03-09 08:20] LABS: HEMATOCRIT. 30.9 % (42.0-52.0); HEMOGLOBIN. 10.4 g/dL (14.0-18.0); MEAN CORPUSCULAR HEMOGLOBIN 32.4 pg (28.0-32.0); MEAN CORPUSCULAR VOLUME 96.3 fL (80.0-94.0); MEAN PLATELET VOLUME 9.1 fl (7.4-10.4); PLATELET 466 x1000/uL (130-400); RED BLOOD CELL COUNT 3.21 mill/uL (4.7-6.1); RED CELL DISTRIBUTION WIDTH 14.2 % (11.6-14.6)
[2017-03-09] MEDS: ENOXAPARIN 40MG/0.4ML SYR SUBCUT SCH ×2 (09:46→21:14)
[2017-03-09] MEDS: FLUCONAZOLE 200MG TABLET PO SCH (09:47)
[2017-03-09] MEDS: MAGNESIUM OXIDE 400MG TABLET NG SCH (09:47)
[2017-03-09] MEDS: ASPIRIN 81MG TABLET PO SCH (09:50)
[2017-03-09] MEDS: LISINOPRIL 5MG TABLET PO SCH ×2 (09:50→21:00)
[2017-03-09] MEDS: METOPROLOL TARTRATE 25MG TABLET PO SCH ×2 (09:50→21:13)
[2017-03-09] MEDS: NYSTATIN POWDER 15GM TOP SCH ×3 (09:51→16:28)
[2017-03-09 16:46] LABS: PLATELET ESTIMATE INCREASED
[2017-03-10] VITALS (12 sets, daily range): BP systolic 108–158; BP diastolic 58–97
[2017-03-10] MEDS: IPRATROPIUM/ALBUTEROL 0.5-3(2.5)MG/3ML NEB HHN SCH ×6 (01:02→20:30)
[2017-03-10] MEDS: CEFEPIME 1,000 MG in DEXTROSE 5% WATER 50 ML IV SCH ×2 (02:32→14:13)
[2017-03-10] MEDS: HYDRALAZINE HCL 25MG TABLET PO SCH ×3 (06:00→22:00)
[2017-03-10] MEDS: OMEPRAZOLE 20MG CAPSULE EXTENDED RELEASE PO SCH ×2 (06:53→20:46)
[2017-03-10] MEDS: ACETAMINOPHEN 325MG TABLET PO PRN ×3 (06:53→17:22)
[2017-03-10] MEDS: METOCLOPRAMIDE HCL 10MG/2ML VIAL IV SCH ×4 (06:54→23:22)
[2017-03-10] MEDS: ASPIRIN 81MG TABLET PO SCH (08:38)
[2017-03-10] MEDS: METOPROLOL TARTRATE 25MG TABLET PO SCH ×2 (08:38→20:46)
[2017-03-10] MEDS: FLUCONAZOLE 200MG TABLET PO SCH (08:38)
[2017-03-10] MEDS: ENOXAPARIN 40MG/0.4ML SYR SUBCUT SCH ×2 (08:38→20:46)
[2017-03-10] MEDS: LISINOPRIL 5MG TABLET PO SCH ×2 (08:39→20:46)
[2017-03-10] MEDS: MAGNESIUM OXIDE 400MG TABLET NG SCH (08:55)
[2017-03-10] MEDS: NYSTATIN POWDER 15GM TOP SCH ×3 (08:56→16:12)
[2017-03-10] MEDS: MORPHINE SULFATE 4 MG/ML CPJ (NOT FOR IM USE) IV PRN ×2 (11:12→16:11)
[2017-03-11] VITALS (11 sets, daily range): BP systolic 104–160; BP diastolic 61–107
[2017-03-11] MEDS: ACETAMINOPHEN 325MG TABLET PO PRN ×4 (00:16→20:57)
[2017-03-11] MEDS: IPRATROPIUM/ALBUTEROL 0.5-3(2.5)MG/3ML NEB HHN SCH ×6 (00:17→21:47)
[2017-03-11] MEDS: CEFEPIME 1,000 MG in DEXTROSE 5% WATER 50 ML IV SCH ×2 (04:26→15:50)
[2017-03-11] MEDS: OMEPRAZOLE 20MG CAPSULE EXTENDED RELEASE PO SCH ×2 (06:34→20:56)
[2017-03-11] MEDS: HYDRALAZINE HCL 25MG TABLET PO SCH ×3 (06:34→22:49)
[2017-03-11] MEDS: METOCLOPRAMIDE HCL 10MG/2ML VIAL IV SCH ×3 (06:35→17:07)
[2017-03-11 06:52] LABS: HEMATOCRIT. 33.4 % (42.0-52.0); MEAN CORPUSCULAR VOLUME 97.2 fL (80.0-94.0); MEAN PLATELET VOLUME 9.4 fl (7.4-10.4); PLATELET 550 x1000/uL (130-400); RED BLOOD CELL COUNT 3.44 mill/uL (4.7-6.1); RED CELL DISTRIBUTION WIDTH 14.7 % (11.6-14.6)
[2017-03-11] MEDS: MAGNESIUM OXIDE 400MG TABLET NG SCH (08:17)
[2017-03-11] MEDS: METOPROLOL TARTRATE 25MG TABLET PO SCH (08:17)
[2017-03-11] MEDS: LISINOPRIL 5MG TABLET PO SCH (08:17)
[2017-03-11] MEDS: FLUCONAZOLE 200MG TABLET PO SCH (08:17)
[2017-03-11] MEDS: ASPIRIN 81MG TABLET PO SCH (08:17)
[2017-03-11] MEDS: ENOXAPARIN 40MG/0.4ML SYR SUBCUT SCH (08:18)
[2017-03-11] MEDS: MORPHINE SULFATE 4 MG/ML CPJ (NOT FOR IM USE) IV PRN ×2 (11:56→16:41)
[2017-03-11 18:06] LABS: PLATELET ESTIMATE INCREASED
[2017-03-11] MEDS: METOPROLOL TARTRATE 50MG TABLET PO SCH (20:56)
[2017-03-11] MEDS: ENOXAPARIN 30MG/0.3ML SYR SUBCUT SCH (20:57)
[2017-03-12] VITALS (12 sets, daily range): BP systolic 93–149; BP diastolic 36–77
[2017-03-12] MEDS: METOCLOPRAMIDE HCL 10MG/2ML VIAL IV SCH ×4 (00:21→18:11)
[2017-03-12] MEDS: IPRATROPIUM/ALBUTEROL 0.5-3(2.5)MG/3ML NEB HHN SCH ×6 (01:25→20:07)
[2017-03-12] MEDS: CEFEPIME 1,000 MG in DEXTROSE 5% WATER 50 ML IV SCH (02:13)
[2017-03-12] MEDS: ACETAMINOPHEN 325MG TABLET PO PRN ×3 (04:56→21:41)
[2017-03-12 06:21] LABS: HEMATOCRIT. 31.3 % (42.0-52.0); HEMOGLOBIN. 10.3 g/dL (14.0-18.0); MEAN CORPUSCULAR HEMOGLOBIN 32.1 pg (28.0-32.0); MEAN PLATELET VOLUME 9.5 fl (7.4-10.4); PLATELET 485 x1000/uL (130-400); RED BLOOD CELL COUNT 3.19 mill/uL (4.7-6.1)
[2017-03-12] MEDS: HYDRALAZINE HCL 25MG TABLET PO SCH ×2 (06:49→13:36)
[2017-03-12] MEDS: OMEPRAZOLE 20MG CAPSULE EXTENDED RELEASE PO SCH ×2 (06:49→21:43)
[2017-03-12] MEDS ORDERED: SODIUM POLYSTYRENE SULFONATE 15 G/60 ML BOT PO SCH (08:15)
[2017-03-12] MEDS: MAGNESIUM OXIDE 400MG TABLET NG SCH (09:06)
[2017-03-12] MEDS: ENOXAPARIN 30MG/0.3ML SYR SUBCUT SCH ×2 (09:06→21:43)
[2017-03-12] MEDS: ASPIRIN 81MG TABLET PO SCH (09:06)
[2017-03-12] MEDS: METOPROLOL TARTRATE 50MG TABLET PO SCH ×2 (09:07→21:42)
[2017-03-12] MEDS: NYSTATIN POWDER 15GM TOP SCH ×3 (09:11→18:10)
[2017-03-12 11:24] LABS: CLARITY URINE TURBID (CLEAR); COLOR URINE ORANGE (YELLOW); GLUCOSE URINE NEGATIVE (NEGATIVE); KETONES URINE NEGATIVE (NEGATIVE); LEUKOCYTE ESTERASE URINE 3+ (NEGATIVE); NITRITE URINE NEGATIVE (NEGATIVE); OCCULT BLOOD URINE 3+ (NEGATIVE); PROTEIN URINE 2+ (NEGATIVE); SPECIFIC GRAVITY URINE 1.016 (1.005-1.030); UROBILINOGEN URINE 0.2 E.U./dL (0.2-1.0)
[2017-03-12] MEDS ORDERED: DIATR MEGLU/DIATRIZOATE SOLN 30ML PO SCH (12:45)
[2017-03-12] MEDS ORDERED: VANCOMYCIN 1 G PREMIX 200 ML IV NR (13:00)
[2017-03-12 13:23] LABS: PLATELET ESTIMATE INCREASED
[2017-03-12] MEDS: MEROPENEM 500 MG in SODIUM CHLORIDE 0.9% 50 ML IV SCH (15:04)
[2017-03-12 18:19] LABS: BG BASE EXCESS 4.5 mmol/L (-2.0-2.0); BG CARBOXYHEMOGLOBIN 0.4 % (0.5-1.5); BG DEOXYHEMOGLOBIN 7.1 % (0.0-5.0); BG FRACTION INSPIRED OXYGEN 32; BG HCO3 ACT 28.9 mmol/L (22.0-26.0); BG METHEMOGLOBIN 0.3 % (0.0-1.5); BG OXYGEN SATURATION 92.8 % (92.0-98.5); BG OXYHEMOGLOBIN 92.2 % (94.0-97.0); BG PCO2 42.1 mmHg (35.0-45.0); BG PH 7.454 (7.350-7.450); BG PO2 60.9 mmHg (75.0-100.0); BG SAMPLE SITE RIGHT BRACHIAL; BG VENT MODE NASAL CANNULA
[2017-03-12] MEDS ORDERED: CALCIUM CHLORIDE 1GM/10ML SYR IV NR (21:15)
[2017-03-12] MEDS ORDERED: DEXTROSE 50% WATER 50ML SYRINGE IV NR (21:15)
[2017-03-12] MEDS ORDERED: INSULIN REGULAR (HUMULIN R) UD 100 UNITS/ML SYR IV NR (22:00)
[2017-03-13] VITALS (12 sets, daily range): BP systolic 99–151; BP diastolic 40–90
[2017-03-13] MEDS: IPRATROPIUM/ALBUTEROL 0.5-3(2.5)MG/3ML NEB HHN SCH ×6 (00:41→20:36)
[2017-03-13] MEDS: METOCLOPRAMIDE HCL 10MG/2ML VIAL IV SCH ×5 (00:54→23:54)
[2017-03-13] MEDS: ACETAMINOPHEN 325MG TABLET PO PRN (03:46)
[2017-03-13] MEDS: OMEPRAZOLE 20MG CAPSULE EXTENDED RELEASE PO SCH ×2 (06:47→20:59)
[2017-03-13 06:56] LABS: CARBON DIOXIDE 26 mEq/L (21-32); CHLORIDE 124 mEq/L (98-107); CREATINE KINASE 132 IU/L (39-308)
[2017-03-13] MEDS: ENOXAPARIN 30MG/0.3ML SYR SUBCUT SCH (08:30)
[2017-03-13] MEDS: DEXT 5% WATER 500 ML IV SCH ×3 (08:30→22:51)
[2017-03-13] MEDS: ASPIRIN 81MG TABLET PO SCH (08:30)
[2017-03-13] MEDS: METOPROLOL TARTRATE 50MG TABLET PO SCH ×3 (08:30→21:01)
[2017-03-13] MEDS: NYSTATIN POWDER 15GM TOP SCH ×3 (08:37→16:56)
[2017-03-13] MEDS ORDERED: DEXTROSE 5% WATER 1,000 ML IV SCH (09:00)
[2017-03-13 10:45] LABS: BASOPHILS % 0.3 % (0.0-2.0); EOSINOPHILS % 3.2 % (0.0-5.0); HEMATOCRIT. 30.4 % (42.0-52.0); HEMOGLOBIN. 9.6 g/dL (14.0-18.0); LYMPHOCYTES % 7.4 % (20.0-50.0); MEAN CORPUSCULAR HEMOGLOBIN 31.8 pg (28.0-32.0); MEAN CORPUSCULAR VOLUME 100.5 fL (80.0-94.0); MEAN PLATELET VOLUME 9.9 fl (7.4-10.4); MONOCYTES % 5.5 % (2.0-8.0); NEUTROPHILS % 83.6 % (40.0-76.0); PLATELET 367 x1000/uL (130-400); RED BLOOD CELL COUNT 3.02 mill/uL (4.7-6.1); RED CELL DISTRIBUTION WIDTH 15.3 % (11.6-14.6)
[2017-03-13 12:14] LABS: PLATELET ESTIMATE NORMAL
[2017-03-13] MEDS: MEROPENEM 500 MG in SODIUM CHLORIDE 0.9% 50 ML IV SCH (13:00)
[2017-03-13] MEDS: AMIODARONE HCL 200 MG TABLET PO SCH (22:39)
[2017-03-14] VITALS (12 sets, daily range): BP systolic 110–148; BP diastolic 52–78
[2017-03-14] MEDS: IPRATROPIUM/ALBUTEROL 0.5-3(2.5)MG/3ML NEB HHN SCH ×6 (00:15→20:54)
[2017-03-14] MEDS: OMEPRAZOLE 20MG CAPSULE EXTENDED RELEASE PO SCH ×2 (06:57→21:00)
[2017-03-14] MEDS: METOCLOPRAMIDE HCL 10MG/2ML VIAL IV SCH ×3 (06:57→17:08)
[2017-03-14] MEDS: AMIODARONE HCL 200 MG TABLET PO SCH ×2 (08:12→21:01)
[2017-03-14] MEDS: METOPROLOL TARTRATE 50MG TABLET PO SCH ×2 (08:12→21:01)
[2017-03-14] MEDS: ASPIRIN 81MG TABLET PO SCH (08:12)
[2017-03-14] MEDS: NYSTATIN POWDER 15GM TOP SCH ×3 (08:12→17:08)
[2017-03-14] MEDS: ENOXAPARIN 40MG/0.4ML SYR SUBCUT SCH (08:13)
[2017-03-14 10:18] LABS: BASOPHILS % 0.9 % (0.0-2.0); EOSINOPHILS % 5.7 % (0.0-5.0); HEMATOCRIT. 31.1 % (42.0-52.0); HEMOGLOBIN. 10.3 g/dL (14.0-18.0); LYMPHOCYTES % 10.3 % (20.0-50.0); MEAN CORPUSCULAR HEMOGLOBIN 32.4 pg (28.0-32.0); MEAN CORPUSCULAR VOLUME 98.1 fL (80.0-94.0); MEAN PLATELET VOLUME 9.7 fl (7.4-10.4); MONOCYTES % 7.1 % (2.0-8.0); PLATELET 412 x1000/uL (130-400); RED BLOOD CELL COUNT 3.17 mill/uL (4.7-6.1); RED CELL DISTRIBUTION WIDTH 14.7 % (11.6-14.6)
[2017-03-14 10:36] LABS: CARBON DIOXIDE 30 mEq/L (21-32); CHLORIDE 120 mEq/L (98-107)
[2017-03-14] MEDS ORDERED: POTASSIUM CHLORIDE 20MEQ/PACKET GT NR (13:30)
[2017-03-14] MEDS ORDERED: FLUCONAZOLE 200MG TABLET PO NR (14:30)
[2017-03-14] MEDS: DEXT 5% WATER 500 ML IV SCH ×4 (14:30→22:29)
[2017-03-14] MEDS: AMLODIPINE 2.5MG TABLET GT SCH (14:39)
[2017-03-14] MEDS ORDERED: VANCOMYCIN 1250MG in DEXTROSE 5% WATER 250ML IV SCH (15:00)
[2017-03-15] VITALS (15 sets, daily range): BP systolic 90–157; BP diastolic 51–149
[2017-03-15] MEDS: IPRATROPIUM/ALBUTEROL 0.5-3(2.5)MG/3ML NEB HHN SCH ×6 (00:32→20:38)
[2017-03-15] MEDS: METOCLOPRAMIDE HCL 10MG/2ML VIAL IV SCH ×5 (00:56→21:56)
[2017-03-15] MEDS: DEXT 5% WATER 500 ML IV SCH (05:07)
[2017-03-15 06:09] LABS: BASOPHILS % 0.7 % (0.0-2.0); EOSINOPHILS % 7.2 % (0.0-5.0); HEMATOCRIT. 31.5 % (42.0-52.0); HEMOGLOBIN. 10.6 g/dL (14.0-18.0); LYMPHOCYTES % 11.6 % (20.0-50.0); MEAN CORPUSCULAR HEMOGLOBIN 32.7 pg (28.0-32.0); MEAN CORPUSCULAR VOLUME 97.6 fL (80.0-94.0); MEAN PLATELET VOLUME 10.1 fl (7.4-10.4); MONOCYTES % 7.7 % (2.0-8.0); NEUTROPHILS % 72.8 % (40.0-76.0); PLATELET 397 x1000/uL (130-400); RED BLOOD CELL COUNT 3.23 mill/uL (4.7-6.1); RED CELL DISTRIBUTION WIDTH 14.6 % (11.6-14.6)
[2017-03-15 06:34] LABS: CARBON DIOXIDE 30 mEq/L (21-32); CHLORIDE 117 mEq/L (98-107)
[2017-03-15] MEDS: OMEPRAZOLE 20MG CAPSULE EXTENDED RELEASE PO SCH (06:39)
[2017-03-15] MEDS ORDERED: POTASSIUM CHLORIDE 20MEQ TABLET SR PO NR (08:15)
[2017-03-15] MEDS: AMIODARONE HCL 200 MG TABLET PO SCH ×2 (08:34→21:00)
[2017-03-15] MEDS: AMLODIPINE 2.5MG TABLET GT SCH (08:35)
[2017-03-15] MEDS: ASPIRIN 81MG TABLET PO SCH (08:35)
[2017-03-15] MEDS: METOPROLOL TARTRATE 50MG TABLET PO SCH ×2 (08:35→21:00)
[2017-03-15] MEDS: NYSTATIN POWDER 15GM TOP SCH ×3 (08:36→17:02)
[2017-03-15] MEDS: ENOXAPARIN 40MG/0.4ML SYR SUBCUT SCH (08:36)
[2017-03-15] MEDS: LANSOPRAZOLE 15MG DR CAPSULE GT SCH ×2 (08:51→21:00)
[2017-03-15] MEDS: FLUCONAZOLE 200MG TABLET PO SCH (13:55)
[2017-03-15] MEDS: DOCUSATE SODIUM 100MG CAPSULE PO PRN (18:15)
[2017-03-16] VITALS (13 sets, daily range): BP systolic 98–135; BP diastolic 42–73
[2017-03-16] MEDS: IPRATROPIUM/ALBUTEROL 0.5-3(2.5)MG/3ML NEB HHN SCH ×6 (00:31→21:01)
[2017-03-16] MEDS: METOCLOPRAMIDE HCL 10MG/2ML VIAL IV SCH ×4 (05:11→23:31)
[2017-03-16 06:40] LABS: BASOPHILS % 0.8 % (0.0-2.0); EOSINOPHILS % 6.8 % (0.0-5.0); HEMATOCRIT. 30.8 % (42.0-52.0); HEMOGLOBIN. 10.4 g/dL (14.0-18.0); LYMPHOCYTES % 12.3 % (20.0-50.0); MEAN CORPUSCULAR HEMOGLOBIN 32.8 pg (28.0-32.0); MEAN CORPUSCULAR VOLUME 97.1 fL (80.0-94.0); MEAN PLATELET VOLUME 10.2 fl (7.4-10.4); MONOCYTES % 6.8 % (2.0-8.0); NEUTROPHILS % 73.3 % (40.0-76.0); PLATELET 371 x1000/uL (130-400); RED BLOOD CELL COUNT 3.18 mill/uL (4.7-6.1); RED CELL DISTRIBUTION WIDTH 14.4 % (11.6-14.6)
[2017-03-16 07:21] LABS: CARBON DIOXIDE 27 mEq/L (21-32); CHLORIDE 116 mEq/L (98-107); PHOSPHORUS 2.1 mg/dL (2.5-4.9)
[2017-03-16] MEDS: FLUCONAZOLE 200MG TABLET PO SCH (09:12)
[2017-03-16] MEDS: ENOXAPARIN 40MG/0.4ML SYR SUBCUT SCH (09:12)
[2017-03-16] MEDS: LANSOPRAZOLE 15MG DR CAPSULE GT SCH ×2 (09:13→21:20)
[2017-03-16] MEDS: AMLODIPINE 2.5MG TABLET GT SCH (09:13)
[2017-03-16] MEDS: AMIODARONE HCL 200 MG TABLET PO SCH ×2 (09:14→21:20)
[2017-03-16] MEDS: NYSTATIN POWDER 15GM TOP SCH ×3 (09:14→17:48)
[2017-03-16] MEDS: ASPIRIN 81MG TABLET PO SCH (09:14)
[2017-03-16] MEDS: METOPROLOL TARTRATE 50MG TABLET PO SCH ×2 (09:14→21:21)
[2017-03-16] MEDS ORDERED: POTASSIUM CHLORIDE 20MEQ/PACKET GT NR (11:15)
[2017-03-16] MEDS ORDERED: POTASSIUM PHOS,M-BASIC-D-BASIC 15 MMOL in DEXT 5% WATER 245 ML IV NR (13:00)
[2017-03-16] MEDS: ENOXAPARIN 30MG/0.3ML SYR SUBCUT SCH (21:22)
[2017-03-17] VITALS (12 sets, daily range): BP systolic 110–139; BP diastolic 44–93
[2017-03-17] MEDS: IPRATROPIUM/ALBUTEROL 0.5-3(2.5)MG/3ML NEB HHN SCH ×7 (00:16→23:46)
[2017-03-17] MEDS: METOCLOPRAMIDE HCL 10MG/2ML VIAL IV SCH (05:06)
[2017-03-17 07:08] LABS: BASOPHILS % 0.9 % (0.0-2.0); HEMATOCRIT. 29.6 % (42.0-52.0); HEMOGLOBIN. 9.8 g/dL (14.0-18.0); LYMPHOCYTES % 12.4 % (20.0-50.0); MEAN CORPUSCULAR HEMOGLOBIN 32.1 pg (28.0-32.0); MEAN CORPUSCULAR VOLUME 97.1 fL (80.0-94.0); MEAN PLATELET VOLUME 10.5 fl (7.4-10.4); MONOCYTES % 6.4 % (2.0-8.0); NEUTROPHILS % 74.3 % (40.0-76.0); PLATELET 357 x1000/uL (130-400); RED BLOOD CELL COUNT 3.05 mill/uL (4.7-6.1); RED CELL DISTRIBUTION WIDTH 14.3 % (11.6-14.6)
[2017-03-17 08:00] LABS: CARBON DIOXIDE 27 mEq/L (21-32); CHLORIDE 117 mEq/L (98-107); PHOSPHORUS 2.3 mg/dL (2.5-4.9)
[2017-03-17] MEDS: LANSOPRAZOLE 15MG DR CAPSULE GT SCH ×2 (08:26→20:46)
[2017-03-17] MEDS: FLUCONAZOLE 200MG TABLET PO SCH (08:27)
[2017-03-17] MEDS: AMLODIPINE 2.5MG TABLET GT SCH (08:27)
[2017-03-17] MEDS: AMIODARONE HCL 200 MG TABLET PO SCH ×2 (08:28→20:46)
[2017-03-17] MEDS: METOPROLOL TARTRATE 50MG TABLET PO SCH ×2 (08:28→20:46)
[2017-03-17] MEDS: NYSTATIN POWDER 15GM TOP SCH ×3 (08:29→17:12)
[2017-03-17] MEDS: ASPIRIN 81MG TABLET PO SCH (08:29)
[2017-03-17] MEDS: ENOXAPARIN 30MG/0.3ML SYR SUBCUT SCH ×2 (08:48→20:46)
[2017-03-17] MEDS ORDERED: POTASSIUM PHOS,M-BASIC-D-BASIC 15 MMOL in DEXT 5% WATER 245 ML IV SCH (11:00)
[2017-03-17] MEDS: METOCLOPRAMIDE HCL 10MG TABLET GT SCH ×2 (17:11→23:14)
[2017-03-18] VITALS (13 sets, daily range): BP systolic 122–179; BP diastolic 43–111
[2017-03-18] MEDS: IPRATROPIUM/ALBUTEROL 0.5-3(2.5)MG/3ML NEB HHN SCH ×6 (03:30→23:11)
[2017-03-18 06:04] LABS: BASOPHILS % 0.6 % (0.0-2.0); HEMATOCRIT. 32.9 % (42.0-52.0); HEMOGLOBIN. 10.6 g/dL (14.0-18.0); LYMPHOCYTES % 11.4 % (20.0-50.0); MEAN CORPUSCULAR HEMOGLOBIN 31.5 pg (28.0-32.0); MEAN CORPUSCULAR VOLUME 97.4 fL (80.0-94.0); MEAN PLATELET VOLUME 10.6 fl (7.4-10.4); MONOCYTES % 5.9 % (2.0-8.0); NEUTROPHILS % 77.1 % (40.0-76.0); PLATELET 354 x1000/uL (130-400); RED BLOOD CELL COUNT 3.37 mill/uL (4.7-6.1); RED CELL DISTRIBUTION WIDTH 14.8 % (11.6-14.6)
[2017-03-18 06:32] LABS: CARBON DIOXIDE 28 mEq/L (21-32); CHLORIDE 113 mEq/L (98-107); PHOSPHORUS 2.4 mg/dL (2.5-4.9)
[2017-03-18] MEDS: METOCLOPRAMIDE HCL 10MG TABLET GT SCH ×4 (06:51→23:51)
[2017-03-18] MEDS: LANSOPRAZOLE 15MG DR CAPSULE GT SCH ×2 (06:51→21:04)
[2017-03-18] MEDS: ENOXAPARIN 30MG/0.3ML SYR SUBCUT SCH ×2 (09:05→21:05)
[2017-03-18] MEDS: AMIODARONE HCL 200 MG TABLET PO SCH ×2 (09:05→21:03)
[2017-03-18] MEDS: METOPROLOL TARTRATE 50MG TABLET PO SCH ×2 (09:05→21:04)
[2017-03-18] MEDS: FLUCONAZOLE 200MG TABLET PO SCH (09:05)
[2017-03-18] MEDS: AMLODIPINE 2.5MG TABLET GT SCH ×2 (09:05→17:24)
[2017-03-18] MEDS: ASPIRIN 81MG TABLET PO SCH (09:05)
[2017-03-18] MEDS: NYSTATIN POWDER 15GM TOP SCH ×3 (09:06→17:19)
[2017-03-18] MEDS ORDERED: POTASSIUM PHOS,M-BASIC-D-BASIC 15 MMOL in DEXT 5% WATER 245 ML IV SCH (11:00)
[2017-03-18] MEDS: ACETAMINOPHEN 325MG TABLET PO PRN ×2 (12:51→21:05)
[2017-03-18] MEDS: DIPHENHYDRAMINE 50MG/ML VIAL IV PRN (22:06)
[2017-03-19] VITALS (15 sets, daily range): BP systolic 81–128; BP diastolic 39–98
[2017-03-19] MEDS: IPRATROPIUM/ALBUTEROL 0.5-3(2.5)MG/3ML NEB HHN SCH ×5 (03:09→21:15)
[2017-03-19 06:51] LABS: HEMATOCRIT. 33.3 % (42.0-52.0); HEMOGLOBIN. 10.9 g/dL (14.0-18.0); MEAN CORPUSCULAR HEMOGLOBIN 31.8 pg (28.0-32.0); MEAN CORPUSCULAR VOLUME 97.3 fL (80.0-94.0); MEAN PLATELET VOLUME 11.4 fl (7.4-10.4); PLATELET 324 x1000/uL (130-400); RED BLOOD CELL COUNT 3.42 mill/uL (4.7-6.1); RED CELL DISTRIBUTION WIDTH 14.6 % (11.6-14.6)
[2017-03-19] MEDS: METOCLOPRAMIDE HCL 10MG TABLET GT SCH ×3 (07:06→17:35)
[2017-03-19] MEDS: LANSOPRAZOLE 15MG DR CAPSULE GT SCH ×2 (07:14→22:03)
[2017-03-19 07:19] LABS: CARBON DIOXIDE 25 mEq/L (21-32); CHLORIDE 113 mEq/L (98-107); PHOSPHORUS 2.3 mg/dL (2.5-4.9)
[2017-03-19 08:42] LABS: BG BASE EXCESS 0.5 mmol/L (-2.0-2.0); BG CARBOXYHEMOGLOBIN 0.3 % (0.5-1.5); BG DEOXYHEMOGLOBIN 5.9 % (0.0-5.0); BG OXYGEN SATURATION 94.1 % (92.0-98.5); BG OXYHEMOGLOBIN 93.8 % (94.0-97.0); BG PCO2 39.5 mmHg (35.0-45.0); BG PH 7.419 (7.350-7.450); BG PO2 73.4 mmHg (75.0-100.0); BG SAMPLE SITE RIGHT RADIAL; BG TOTAL HEMOGLOBIN 11.9 g/dL (12.0-18.0); BG VENT MODE MASK - NRB
[2017-03-19] MEDS: AMLODIPINE 2.5MG TABLET GT SCH ×2 (09:00→17:00)
[2017-03-19] MEDS: METOPROLOL TARTRATE 50MG TABLET PO SCH ×2 (09:00→21:00)
[2017-03-19] MEDS: ENOXAPARIN 30MG/0.3ML SYR SUBCUT SCH ×2 (09:37→21:00)
[2017-03-19] MEDS: NYSTATIN POWDER 15GM TOP SCH ×3 (09:37→17:37)
[2017-03-19] MEDS: FLUCONAZOLE 200MG TABLET PO SCH (10:24)
[2017-03-19] MEDS: AMIODARONE HCL 200 MG TABLET PO SCH ×2 (10:24→21:00)
[2017-03-19] MEDS: ASPIRIN 81MG TABLET PO SCH (10:24)
[2017-03-19] MEDS: ACETAMINOPHEN 325MG TABLET PO PRN ×2 (10:37→17:36)
[2017-03-19] MEDS ORDERED: MAGNESIUM 2 G PREMIX 50 ML IV NR (11:00)
[2017-03-19] MEDS ORDERED: PROPOFOL 10MG/ML 100ML 100 ML IV PRN (12:00)
[2017-03-19] MEDS: CEFEPIME 2,000 MG in DEXT 5% WATER 100 ML IV SCH (12:31)
[2017-03-19] MEDS ORDERED: LORAZEPAM 2MG/ML CPJ IV PRN (13:00)
[2017-03-19] MEDS: METRONIDAZOLE 500 MG PREMIX 100 ML IV SCH ×2 (14:35→22:03)
[2017-03-19 15:49] LABS: PLATELET ESTIMATE NORMAL
[2017-03-19] MEDS ORDERED: VANCOMYCIN 2,000 MG in DEXT 5% WATER 500 ML IV SCH (18:00)
[2017-03-19] MEDS: DEXTROSE 5% WATER 1,000 ML IV SCH (19:30)
[2017-03-20] VITALS (8 sets, daily range): BP systolic 45–91; BP diastolic 35–50
[2017-03-20] MEDS: CEFEPIME 2,000 MG in DEXT 5% WATER 100 ML IV SCH ×2 (00:13→11:51)
[2017-03-20] MEDS: IPRATROPIUM/ALBUTEROL 0.5-3(2.5)MG/3ML NEB HHN SCH ×6 (00:18→20:27)
[2017-03-20] MEDS: METOCLOPRAMIDE HCL 10MG TABLET GT SCH ×3 (06:00→11:51)
[2017-03-20] MEDS: METRONIDAZOLE 500 MG PREMIX 100 ML IV SCH ×2 (06:17→13:36)
[2017-03-20 07:21] LABS: HEMATOCRIT. 32.2 % (42.0-52.0); HEMOGLOBIN. 10.4 g/dL (14.0-18.0); MEAN CORPUSCULAR VOLUME 99.5 fL (80.0-94.0); MEAN PLATELET VOLUME 11.1 fl (7.4-10.4); PLATELET 319 x1000/uL (130-400); RED BLOOD CELL COUNT 3.24 mill/uL (4.7-6.1); RED CELL DISTRIBUTION WIDTH 14.9 % (11.6-14.6)
[2017-03-20] MEDS: AMLODIPINE 2.5MG TABLET GT SCH ×2 (09:00→16:24)
[2017-03-20] MEDS: METOPROLOL TARTRATE 50MG TABLET PO SCH ×2 (09:00→21:00)
[2017-03-20] MEDS: AMIODARONE HCL 200 MG TABLET PO SCH ×2 (09:15→21:00)
[2017-03-20] MEDS: ASPIRIN 81MG TABLET PO SCH (09:15)
[2017-03-20] MEDS: ENOXAPARIN 30MG/0.3ML SYR SUBCUT SCH ×2 (09:15→21:00)
[2017-03-20] MEDS: LANSOPRAZOLE 15MG DR CAPSULE GT SCH ×2 (09:16→21:00)
[2017-03-20] MEDS: NYSTATIN POWDER 15GM TOP SCH ×3 (09:17→17:31)
[2017-03-20] MEDS: FLUCONAZOLE 200MG TABLET PO SCH (09:21)
[2017-03-20] MEDS: MORPHINE SULFATE 2 MG/ML CPJ (NOT FOR IM USE) IV PRN (09:32)
[2017-03-20 09:38] LABS: BG BASE EXCESS -0.9 mmol/L (-2.0-2.0); BG CARBOXYHEMOGLOBIN 0.3 % (0.5-1.5); BG DEOXYHEMOGLOBIN 10.4 % (0.0-5.0); BG FRACTION INSPIRED OXYGEN 100; BG HCO3 ACT 27.1 mmol/L (22.0-26.0); BG METHEMOGLOBIN 0.3 % (0.0-1.5); BG OXYGEN SATURATION 89.5 % (92.0-98.5); BG PCO2 61.9 mmHg (35.0-45.0); BG PH 7.259 (7.350-7.450); BG SAMPLE SITE RIGHT RADIAL; BG VENT MODE MASK - NRB
[2017-03-20] MEDS ORDERED: VANCOMYCIN 1500MG in DEXTROSE 5% WATER 250ML IV SCH (12:00)
[2017-03-20] MEDS: DEXTROSE 5% WATER 1,000 ML IV SCH (16:24)
[2017-03-20 16:54] LABS: PLATELET ESTIMATE NORMAL
[2017-03-20] MEDS: METOCLOPRAMIDE 10MG/10 ML UDC GT SCH (17:31)
[2017-03-20] MEDS ORDERED: FAMOTIDINE 20MG/2ML VIAL IV SCH (21:00)
[2017-03-21] VITALS (19 sets, daily range): BP systolic 76–92; BP diastolic 38–62
[2017-03-21] MEDS: IPRATROPIUM/ALBUTEROL 0.5-3(2.5)MG/3ML NEB HHN SCH ×6 (00:52→20:08)
[2017-03-21] MEDS: METOCLOPRAMIDE 10MG/10 ML UDC GT SCH ×5 (06:00→23:15)
[2017-03-21 06:42] LABS: HEMATOCRIT. 30.7 % (42.0-52.0); HEMOGLOBIN. 9.6 g/dL (14.0-18.0); MEAN CORPUSCULAR HEMOGLOBIN 31.5 pg (28.0-32.0); MEAN CORPUSCULAR VOLUME 100.7 fL (80.0-94.0); MEAN PLATELET VOLUME 11.2 fl (7.4-10.4); PLATELET 304 x1000/uL (130-400); RED BLOOD CELL COUNT 3.05 mill/uL (4.7-6.1); RED CELL DISTRIBUTION WIDTH 15.3 % (11.6-14.6)
[2017-03-21] MEDS: AMLODIPINE 2.5MG TABLET GT SCH ×2 (08:02→17:00)
[2017-03-21] MEDS: METOPROLOL TARTRATE 50MG TABLET PO SCH ×2 (08:03→21:00)
[2017-03-21] MEDS: AMIODARONE HCL 200 MG TABLET PO SCH ×2 (08:04→21:00)
[2017-03-21] MEDS: NYSTATIN POWDER 15GM TOP SCH ×3 (08:14→17:54)
[2017-03-21] MEDS: LANSOPRAZOLE 15MG DR CAPSULE GT SCH ×2 (08:15→21:00)
[2017-03-21] MEDS: FLUCONAZOLE 200MG TABLET PO SCH (08:15)
[2017-03-21] MEDS: ASPIRIN 81MG TABLET PO SCH (08:15)
[2017-03-21] MEDS: ENOXAPARIN 30MG/0.3ML SYR SUBCUT SCH (08:15)
[2017-03-21] MEDS: CEFEPIME 2,000 MG in DEXT 5% WATER 100 ML IV SCH ×3 (11:30)
[2017-03-21] MEDS: MORPHINE SULFATE 2 MG/ML CPJ (NOT FOR IM USE) IV PRN (11:31)
[2017-03-21 11:44] LABS: GLUCOSE URINE NEGATIVE (NEGATIVE); KETONES URINE NEGATIVE (NEGATIVE); LEUKOCYTE ESTERASE URINE 3+ (NEGATIVE); NITRITE URINE NEGATIVE (NEGATIVE); OCCULT BLOOD URINE 2+ (NEGATIVE); PROTEIN URINE 2+ (NEGATIVE); SPECIFIC GRAVITY URINE 1.007 (1.005-1.030); UROBILINOGEN URINE 0.2 E.U./dL (0.2-1.0)
[2017-03-21 11:46] LABS: CLARITY URINE CLOUDY (CLEAR); COLOR URINE YELLOW (YELLOW)
[2017-03-21] MEDS: DEXTROSE 5% WATER 1,000 ML IV SCH (11:49)
[2017-03-21] MEDS ORDERED: MORPHINE SULFATE IV SCH (12:00)
[2017-03-21] MEDS ORDERED: WATER IV SCH (12:00)
[2017-03-21] MEDS ORDERED: DEXTROSE 5% IV SCH (12:00)
[2017-03-21] MEDS: WATER IV SCH (13:31)
[2017-03-21] MEDS: DEXT 5% IV SCH (13:31)
[2017-03-21] MEDS: MORPHINE SULFATE IV SCH (13:31)
[2017-03-21 16:31] LABS: PLATELET ESTIMATE NORMAL
[2017-03-22] MEDS: IPRATROPIUM/ALBUTEROL 0.5-3(2.5)MG/3ML NEB HHN SCH ×5 (00:07→20:49)
[2017-03-22] MEDS ORDERED: ENOXAPARIN 40MG/0.4ML SYR SUBCUT SCH (09:00)
[2017-03-22 12:00] VITALS: BP 81/40
[2017-03-22] MEDS: NYSTATIN POWDER 15GM TOP SCH ×3 (13:00→17:30)
[2017-03-22 13:44] VITALS: BP 78/40
[2017-03-22 16:00] VITALS: BP 84/41
[2017-03-22 18:00] VITALS: BP 78/37
[2017-03-22 20:00] VITALS: BP 81/42
[2017-03-22] MEDS: MORPHINE SULFATE IV SCH (20:53)
[2017-03-22] MEDS: WATER IV SCH (20:53)
[2017-03-22] MEDS: DEXT 5% IV SCH (20:53)
[2017-03-22] MEDS ORDERED: HYDROCODONE/ACETAMINOPHEN 5/325MG TABLET PO PRN (21:00)
[2017-03-22] MEDS ORDERED: ACETAMINOPHEN 325MG TABLET PO PRN (21:00)
[2017-03-22 22:00] VITALS: BP 92/46
[2017-03-23] VITALS (10 sets, daily range): BP systolic 57–92; BP diastolic 25–54
[2017-03-23] MEDS: IPRATROPIUM/ALBUTEROL 0.5-3(2.5)MG/3ML NEB HHN SCH ×5 (00:55→16:03)
[2017-03-23] MEDS: NYSTATIN POWDER 15GM TOP SCH ×3 (08:22→17:25)
== END 2017-03-23 18:58 | disposition expired | DRG 871 ==
LOC: ER 16:11 → CANRESERV 23:54 → ENRESERV 23:54 → EDBEDREQ 23:57 → EDBEDREQSVC 23:57 → EDBEDREQTM 23:57 → SUPCPDRO 02-21 00:06 → ENRESERV 02-21 02:08 → 5EST 02-21 03:37
PROVIDERS: ADMIT Internal Medicine; ATTEND Internal Medicine
PROC: 0DH63UZ Insertion of Feeding Device into Stomach, Percutaneous Approach (ICD-10-PCS; 2017-02-28)
PROC: 02HV33Z Insertion of Infusion Device into Superior Vena Cava, Percutaneous Approach (ICD-10-PCS; principal; 2017-03-04)
PROC: B548ZZA Ultrasonography of Superior Vena Cava, Guidance (ICD-10-PCS; 2017-03-04)
DX: A41.9 Sepsis, unspecified organism (principal); E43 Unspecified severe protein-calorie malnutrition; J69.0 Pneumonitis due to inhalation of food and vomit; J96.00 Acute respiratory failure, unspecified whether with hypoxia or hypercapnia; J15.212 Pneumonia due to Methicillin resistant Staphylococcus aureus; N17.0 Acute kidney failure with tubular necrosis; G92 Toxic encephalopathy; J84.9 Interstitial pulmonary disease, unspecified; I24.0 Acute coronary thrombosis not resulting in myocardial infarction; I50.43 Acute on chronic combined systolic (congestive) and diastolic (congestive) heart failure; I47.2 Ventricular tachycardia; E87.0 Hyperosmolality and hypernatremia; M47.14 Other spondylosis with myelopathy, thoracic region; I25.810 Atherosclerosis of coronary artery bypass graft(s) without angina pectoris; B37.49 Other urogenital candidiasis; G95.9 Disease of spinal cord, unspecified; I42.0 Dilated cardiomyopathy; I48.1 Persistent atrial fibrillation; N13.2 Hydronephrosis with renal and ureteral calculous obstruction; S42.211A Unspecified displaced fracture of surgical neck of right humerus, initial encounter for closed fracture; E83.42 Hypomagnesemia; G20 Parkinson's disease; E87.5 Hyperkalemia; D64.9 Anemia, unspecified; F02.80 Dementia in other diseases classified elsewhere, unspecified severity, without behavioral disturbance, psychotic disturbance, mood disturbance, and anxiety; I11.0 Hypertensive heart disease with heart failure; K43.9 Ventral hernia without obstruction or gangrene; K21.9 Gastro-esophageal reflux disease without esophagitis; D75.89 Other specified diseases of blood and blood-forming organs; E66.9 Obesity, unspecified; E78.00 Pure hypercholesterolemia, unspecified; E78.5 Hyperlipidemia, unspecified; E86.0 Dehydration; E87.6 Hypokalemia; E87.8 Other disorders of electrolyte and fluid balance, not elsewhere classified; M19.90 Unspecified osteoarthritis, unspecified site; I25.5 Ischemic cardiomyopathy; I27.20 Pulmonary hypertension, unspecified; I48.0 Paroxysmal atrial fibrillation; I49.3 Ventricular premature depolarization; K21.0 Gastro-esophageal reflux disease with esophagitis; K29.60 Other gastritis without bleeding; K44.9 Diaphragmatic hernia without obstruction or gangrene; K57.90 Diverticulosis of intestine, part unspecified, without perforation or abscess without bleeding; M47.817 Spondylosis without myelopathy or radiculopathy, lumbosacral region; M48.00 Spinal stenosis, site unspecified; N40.0 Benign prostatic hyperplasia without lower urinary tract symptoms; B35.9 Dermatophytosis, unspecified; N62 Hypertrophy of breast; R13.12 Dysphagia, oropharyngeal phase; R62.7 Adult failure to thrive; I95.9 Hypotension, unspecified; R74.0 Nonspecific elevation of levels of transaminase and lactic acid dehydrogenase [LDH]; Z51.5 Encounter for palliative care; Z66 Do not resuscitate; Z74.01 Bed confinement status; Z79.899 Other long term (current) drug therapy; Z68.30 Body mass index [BMI] 30.0-30.9, adult; Z95.1 Presence of aortocoronary bypass graft; Z68.33 Body mass index [BMI] 33.0-33.9, adult; Z86.73 Personal history of transient ischemic attack (TIA), and cerebral infarction without residual deficits; Z93.1 Gastrostomy status
CPT/HCPCS: 36415; 36569; 36600; 70551; 71010; 74176; 76770; 76937; 80048; 80053; 80061; 80076; 80202; 80305; 81001; 82140; 82375; 82550; 82553; 82607; 82746; 82805; 82962; 83036; 83540; 83550; 83605; 83690; 83735; 83880; 84100; 84443; 84478; 84484; 85025; 85610; 85651; 85730; 86705; 86709; 86803; 87040; 87070; 87077; 87086; 87106; 87340; 88305; 88312; 93005; 93306; 93970; 94640; 94664; 94667; 96361; 96374; 97163; 97164; 99285; A4216; A6261; C1725; C1893; J0692; J1200; J1650; J1815; J2060; J2185; J2250; J2270; J2405; J2543; J2765; J3010; J3370; J3475; J3490; J7030; J7040; J7050; J7060; J7070; J7608; J7620; J8597; Q9963; A4315